=== PATIENT | male | born 1970 | race Two or more races ===

== ENCOUNTER → 2024-10-03 | Outpatient (CLI) | payer BC ==
[2024-10-03 09:19] LABS: Urine Bacteria None Seen /hpf (None Seen)
[2024-10-03 10:10] LABS: Basophils # (auto) 0.1 10 ^3/uL (0-0.2); Basophils % (auto) 0.9 % (0.0-2.0); Eosinophils # (auto) 0.1 10 ^3/uL (0-0.8); Eosinophils % (auto) 1.4 % (0.0-7.0); Hematocrit 42.6 % (41.0-53.0); Hemoglobin 15.1 g/dL (13.5-17.5); Lymphocytes # (auto) 2.2 10 ^3/uL (0.4-5.4); Lymphocytes % (auto) 29.8 % (10.0-50.0); Mean Corpuscular Hgb Conc. 35.4 g/dL (32.0-36.0); Monocytes # (auto) 0.7 10 ^3/uL (0-1.3); Monocytes % (auto) 9.2 % (0.0-12.0); Neutrophils # (auto) 4.4 10 ^3/uL (1.6-8.6); Neutrophils % (auto) 58.7 % (37.0-80.0); Nucleated Red Blood Cells % 0.1 %; Platelet Count (auto) 277 10^3/uL (140-450); Red Blood Cells 4.44 10^6/uL (4.5-5.90); Red Cell Distribution Width 14.5 % (11.8-14.3); White Blood Cell 7.5 10^3/uL (4.4-10.8)
[2024-10-03 10:19] LABS: Urine Blood Negative /uL (Negative); Urine Clarity Clear (Clear); Urine Color Light-Yellow (Yellow); Urine Protein, UAD Negative (Negative); Urine Specific Gravity 1.018 (1.001-1.035); Urine Urobilinogen Normal (Negative); Urine WBC 1 /hpf (0 - 3)
[2024-10-03 10:23] LABS: Alanine Aminotransferase 21 U/L (7-40); Albumin 4.4 g/dL (3.2-4.8); Alkaline Phosphatase 96 U/L (46-116); Anion Gap 7 (5-15); Aspartate Aminotransferase 22 U/L (13-40); BUN/Creatinine Ratio 13.1 (10.0-20.0); Blood Urea Nitrogen 13 mg/dL (9-23); Calcium 9.9 mg/dL (8.7-10.4); Carbon Dioxide 29 mmol/L (20-31); Chloride 106 mmol/L (98-107); Glucose 103 mg/dL (74-106); LDL Cholesterol 101 mg/dL (< 100); Potassium 4.1 mmol/L (3.5-5.1); Sodium 142 mmol/L (136-145); Triglycerides 163 mg/dL (< 150)
[2024-10-03 10:24] LABS: Bilirubin, Total 0.6 mg/dL (0.2-1.0); Cholesterol 165 mg/dL (< 200); HDL Cholesterol 41 mg/dL (40-59); Total Protein 7.6 g/dL (5.7-8.2)
[2024-10-03 11:48] LABS: Prostate Specific Antigen 0.73 ng/mL (0.0-4.0)
[2024-10-03 11:53] LABS: Free T4 (Free Thyroxine) 0.92 ng/dL (0.89-1.76)
== END | disposition home or self-care (01) ==
LOC: LAB 08:42
PROVIDERS: ATTEND Internal Medicine
DX: Z00.01 Encounter for general adult medical examination with abnormal findings (principal); I10 Essential (primary) hypertension; E78.5 Hyperlipidemia, unspecified; R73.03 Prediabetes; R79.89 Other specified abnormal findings of blood chemistry; E66.3 Overweight; Z79.899 Other long term (current) drug therapy
CPT/HCPCS: 36415; 80053; 80061; 81001; 83036; 84153; 84439; 84443; 85025

== ENCOUNTER 2024-10-18 15:30 | Emergency (ER) | payer BC ==
[~2024-10-18] VITALS: Ht 177.8 cm; Wt 94.0 kg
--- NOTE | 2024-10-18 16:32 | ED.PDOC ---
History of Present Illness HPI Comments 54 y/o M, with a Hx of pre-DM, HLD, HTN, and EtOH use and a FMHx of CA, heart disease, DM, and HTN, presents from PCP's office for c/o dizziness and HTN, today. Patient reports attending and being sent from his PCP office after being found with elevated blood pressure, while being evaluated for intermittent dizziness for the past 3-4x months, with associated left-nasal and ear "congestion" and loss of of left hearing. Patient states on blood pressure being systolically at 163 during aforementioned office visit. He endorses no recent injuries, sick contact, travel, or substance use/exposure along with any additional relevant or pertinent Hx. Patient denies having any vision or speech changes, lightheadedness, facial droops, weakness, numbness, fever, chills, or other associated symptoms or modifiers at this time. Chief Complaint: Dizziness Time Seen by MD: 16:25 Reviewed Notes: Nurses Notes, Medications, Allergies Allergies: Coded Allergies: NO KNOWN ALLERGIES (Unverified , 10/18/24) Home Meds Active Scripts Meclizine HCl (Antivert) 25 Mg Chw, 25 MG PO BID for 5 Days, #10 TAB.CHEW Prov:COLETTE CANTU MD 10/18/24 Information Source: Patient Mode of Arrival: Ambulatory Severity: Moderate Timing: Months Duration: Intermittent Prehospital treatment: None Past Medical History PAST MEDICAL HISTORY: DM (pre-DM), High Lipids, HTN Surgical History: Denies all surgeries Family History Family History: No family hx ofKidney natasha, No family hx of Liver natasha, No family hx of Lung natasha, No family hx of Stroke, Family hx of DM, Family hx of Cancer, Family hx of heart natasha, Family hx of HTN Social History Smoker: Non-Smoker Alcohol: Occasionally Drugs: Denies Drug Use Lives In: Home Constitutional: denies: chills, diaphoresis, fatigue, fever, malaise, sweats, weakness, others EENTM: reports: hearing loss (left ear), others (left nasal and ear congestion ); denies: blurred vision, double vision, ear bleeding, ear discharge, ear drainage, ear pain, ear ringing, eye pain, eye redness, mouth pain, mouth swelling, nasal discharge, nose bleeding, nose congestion, nose pain, koki tophobia, tearing, throat pain, throat swelling, voice changes Respiratory: denies: cough, hemoptysis, orthopnea, SOB at rest, shortness of breath, SOB with excertion, stridor, wheezing, others Cardiovascular: denies: chest pain, dizzy spells, diaphoresis, Dyspnea on exertion, edema, irregular heart beat, left arm pain, lightheadedness, p alpitations, PND, syncope, others Gastrointestinal: denies: abdomen distended, abdominal pain, blood streaked bowels, constipated, diarrhea, dysphagia, difficulty swallowing, hematemesis, melena, nausea, poor appetite, poor fluid intake, rectal bleeding, rectal pain, vomiting, others Genitourinary: denies: burning, dysuria, flank pain, frequency, hematuria, incontinence, penile discharge, penile sore, pain, testicle pain, testicle swelling, urgency, others Neurological: reports: dizziness; denies: fainting, headache, left sided numbness, left sided weakness, numbness, paresthesia, pre-existing deficit, right sided numbness, right sided weakness, seizure, speech problems, tingling, tremors, weakness, others Musculoskeletal: denies: back pain, gout, joint pain, joint swelling, muscle pain, muscle stiffness, neck pain, others Integumetry: denies: bruises, change in color, change in hair/nails, dryness, laceration, lesions, lumps, rash, wounds, others Allergic/Immunocompromised: denies: Difficulty Healing, Frequent Infections, Hives, Itching, others Hematologic/Lymphatic: reports: others (HTN); denies: anemia, blood clots, easy bleeding, easy bruising, swollen glands Physical Exam General Appearance: No Apparent Distress HEENT: Cornea (L), Normal ENT Inspection, Pharynx Normal, TMs Normal Neck: Full Range of Motion, Non-Tender, Normal, Normal Inspection Respiratory: Chest Non-Tender, Lungs Clear, No Accessory Muscle Use, No Respiratory Distress, Normal Breath Sounds Cardiovascular: No Edema, No JVD, No Murmur, No Gallop, Normal Peripheral Pulses, Regular Rate/Rhythm Breast Exam: Deferred Gastrointestinal: No Organomegaly, Non Tender, No Pulsatile Mass, Normal Bowel Sounds, Soft Genitalia: Deferred Pelvic: Deferred Rectal: Deferred Extremities: No calf tenderness, Normal capillary refill, Normal inspection, Normal range of motion, Non-tender, No pedal edema Musculoskeletal : Apperance: Normal Neurologic: Alert, toe pounder II-XII nml as Tested, No Motor Deficits, Normal Affect, Normal Mood, No Sensory Deficits Cerebellar Function: Normal Reflexes: Normal Skin: Dry, Normal Color, Warm Lymphatic: No Adenopathy Was a procedure done? Was a procedure done?: No EKG EKG : Pulse Rate (adult): 82 Wallace: Normal Cardiac Rhythm: NSR Block: None Hypertrophy: LVH ST: Normal Differential Dx Considerations may include: HTN emergency, inappropriate medication dosage, viral syndrome, vertigo X-Ray, Labs, Meds, VS Vital Signs Date Time Temp Pulse Resp B/P (MAP) Pulse Ox O2 Delivery O2 Flow Rate FiO2 10/18/24 16:32 82 10/18/24 15:46 97.5 87 18 157/77 (103) 97 10/18/24 15:46 97.5 87 18 157/77 (103) 97 97.5 At this time, the patient was being discharged The patient will follow up with the primary care doctor The patient will return to the emergency department's condition worsens The patient was given a prescription of Antivert The CT scan of the head is negative Images Reviewed?: Images reviewed and evaluated by me Time of 1ST Reevaluation: 16:55 Reevaluation 1ST: Unchanged Patient Education/Counseling: Diagnosis, Treatment, Prognosis, Need For Follow Up Family Education/Counseling: No Family Present Departure 1 Departure Time of Disposition: 17:49 Impression: Primary Impression: Vertigo Disposition: 01 HOME / SELF CARE / HOMELESS Condition: Fair e-Prescriptions Meclizine HCl (Antivert) 25 Mg Chw 25 MG PO BID for 5 Days, #10 TAB.CHEW Prov: COLETTE CANTU MD 10/18/24 Discharged With: Self Critical Care Note Critical Care Time?: No Stability Stability form required: No Heart Score Heart Score: Heart Score Response (Comments) Value History N/A 0 EKG N/A 0 Age N/A 0 Risk Factors N/A 0 Troponin N/A 0 Total 0 I personally scribed for COLETTE CANTU MD ([email or web address]) on 10/18/24 at 16:32. Electronically submitted by Omega Cruz ([email or web address]). COLETTE CANTU MD Oct 18, 2024 16:32
--- NOTE | 2024-10-18 17:26 | DVH ---
CLINICAL HISTORY: [place] TECHNIQUE: Helical imaging carried out from skull base to vertex without intravenous contrast. This e xam was performed according to our departmental dose optimization program. Up-to-date CT equipment an d radiation dose reduction techniques are utilized as appropriate. CTDIVol: [CTDIvol] mGy DLP: 1113.01 mGy-cm WID: COMPARISON: None FINDINGS: The ventricles and subarachnoid spaces are normal in size and configuration. There is no midline keira ft or mass effect. The teague white matter interfaces are maintained. The basal cisterns are patent. Th ere is no evidence of acute intracranial hemorrhage or extra-axial fluid collection. The mastoid air cells and visualized paranasal sinuses are well-aerated aside from a mucous retention cyst or polyp i n the right maxillary sinus. IMPRESSION: No acute intracranial abnormality.
[2024-10-18] MEDS ORDERED: MECL25CH85 PO (17:48)
[2024-10-18 19:32] VITALS: BP 141/72; TEMP 97.9; O2SAT 98
[2024-10-18 19:38] VITALS: PULSE 81; RESP 16
--- NOTE | 2024-10-20 13:05 | ECG ---
[facility] Test Date: 2024-10-18 Test Time: 15:47:04 Pat Name: LINO MARSHALL Department: ER Room: Gender: M [employer] Instructor: AGATHA : 1970 Requested By: COLETTE CANTU Order Number: [id number] Reading MD: Pop Rosado Measurements Intervals [place] Rate: 82 P: 36 VT: 153 QRS: -25 QRSD: 85 T: -18 QT: 370 QTc: 432 Interpretive Statements Sinus rhythm Left ventricular hypertrophy Borderline T abnormalities, anterior leads Baseline wander in lead(s) I,III,aVL,V1,V3,V4,V5,V6 Electronically Signed On 10-26-2024 11:08:44 PST by Pop Rosado Please click the below link to view image of tracing.
== END 2024-10-18 19:39 | disposition home or self-care (01) ==
LOC: ER 15:30
DX: R42 Dizziness and giddiness (principal); R09.81 Nasal congestion; E11.9 Type 2 diabetes mellitus without complications; E78.5 Hyperlipidemia, unspecified
CPT/HCPCS: 70450; 93005

== ENCOUNTER → 2025-04-03 | Outpatient (CLI) | payer BC ==
[~2025-04-03] MED LIST: MECL25CH85 PO
[2025-04-03 11:17] LABS: Potassium 3.7 mmol/L (3.5-5.1); Sodium 141 mmol/L (136-145)
[2025-04-03 11:18] LABS: Anion Gap 6 (5-15); Carbon Dioxide 28 mmol/L (20-31)
[2025-04-03 11:19] LABS: Calcium 9.5 mg/dL (8.7-10.4); Chloride 107 mmol/L (98-107)
[2025-04-03 11:24] LABS: BUN/Creatinine Ratio 20.7 (10.0-20.0); Blood Urea Nitrogen 17 mg/dL (9-23); Glucose 108 mg/dL (74-106)
== END | disposition home or self-care (01) ==
LOC: LAB 10:38
DX: R42 Dizziness and giddiness (principal)
CPT/HCPCS: 36415; 80048

== ENCOUNTER 2025-05-31 08:22 | Outpatient (CLI) | payer BC ==
[2025-05-31 08:43] LABS: Hematocrit 40.9 % (41.0-53.0); Hemoglobin 14.0 g/dL (13.5-17.5); Mean Corpuscular Hemoglobin 33.3 pg (28.0-32.0); Mean Corpuscular Volume 97.1 fL (80.0-100.0); Nucleated Red Blood Cells % 0.0 %
[2025-05-31 08:54] LABS: Urine Budding Yeast OCCASIONAL /hpf (None Seen); Urine Protein, UAD Negative (Negative)
[2025-05-31 09:37] LABS: Alanine Aminotransferase 18 U/L (7-40); Albumin 4.3 g/dL (3.2-4.8); Alkaline Phosphatase 92 U/L (46-116); Anion Gap 8 (5-15); BUN/Creatinine Ratio 17.5 (10.0-20.0); Bilirubin, Total 0.7 mg/dL (0.2-1.0); Blood Urea Nitrogen 17 mg/dL (9-23); Calcium 9.4 mg/dL (8.7-10.4); Carbon Dioxide 26 mmol/L (20-31); Cholesterol 186 mg/dL (< 200); Glucose 106 mg/dL (74-106); Potassium 4.0 mmol/L (3.5-5.1); Sodium 141 mmol/L (136-145); Total Protein 7.0 g/dL (5.7-8.2)
[2025-05-31 09:43] LABS: Chloride 107 mmol/L (98-107); HDL Cholesterol 37 mg/dL (40-59); Triglycerides 160 mg/dL (< 150)
== END 2025-05-31 17:00 | disposition home or self-care (01) ==
LOC: LAB 08:22
PROVIDERS: ATTEND Internal Medicine
DX: Z00.01 Encounter for general adult medical examination with abnormal findings (principal)
CPT/HCPCS: 36415; 80053; 80061; 81001; 83036; 84439; 84443; 85025